=== PATIENT | male | born 1995 | race Hispanic/Latino ===

== ENCOUNTER 2024-09-20 13:08 | Emergency (ER) | payer BC ==
[~2024-09-20] VITALS: Ht 170.2 cm; Wt 162.4 kg
--- NOTE | 2024-09-20 13:16 | ERN ---
ED Note History of Present Illness Stated Complaint: CHEST PAIN, COUGHING Time Seen by MD: 13:08 Dictation: PATIENT IS A 29-YEAR-OLD MALE COMING IN WITH FLU-LIKE SYMPTOMS SINCE LAST SATURDAY TO INCLUDE BODY ACHES, T-MAX 103, CLEAR RHINITIS AND SORE THROAT WITH PAINFUL SWALLOWING. HE STATES HE HAS HAD AN INTERMITTENT COUGH WITH SHORTNESS A BREATH STATES THE PHLEGM HAS A OCCASIONALLY YELLOW-GREEN. NO NAUSEA VOMITING NO DIARRHEA HE TOOK IBUPROFEN AT 05:[address] PATIENT OF [address] SUE REES Allergies: Coded Allergies: No Known Drug Allergies (Unverified Allergy, Unknown, 09/20/24) Home Meds Active Scripts Ondansetron (Ondansetron Odt) 4 Mg Tab.rapdis, 4 MG PO Q6HPRN PRN for nausea, #16 TAB 0 Refills Prov:RICK ELIZABETH NP 09/20/24 Benzonatate (Tessalon Perles) 100 Mg Cap, 200 MG PO TID PRN for COUGH, #60 CAP Prov:RICK ELIZABETH NP 09/20/24 Azithromycin (Zithromax Tri-Femi) 500 Mg Tablet, 500 MG PO DAILY for 7 Days, #7 TAB Prov:RICK ELIZABETH CARGO SUPERVISOR 09/20/24 Oseltamivir Phosphate (Tamiflu) 75 Mg Cap, 75 MG PO BID for 5 Days, #10 CAP Prov:RICK ELIZABETH NP 09/20/24 Past Medical History RN Note Reviewed/Agreed w/PFSH: Yes Review of System Dictation CONSTITUTIONAL: NEGATIVE EXCEPT FOR HPI FEVER CHILLS HEAD/FACE: NEGATIVE EXCEPT FOR HPI EENT: NEGATIVE EXCEPT FOR HPI CLEAR RHINITIS WITH SORE THROAT RESPIRATORY: NEGATIVE EXCEPT FOR HPI COUGH WITH THE OCCASIONAL PRODUCTION GREEN- YELLOW PHLEGM GASTROINTESTINAL/ABDOMINAL: NEGATIVE EXCEPT FOR HPI GENITOURINARY: NEGATIVE EXCEPT FOR HPI MUSCULOSKELETAL: NEGATIVE EXCEPT FOR HPI INTEGUMENTARY: NEGATIVE EXCEPT FOR HPI NEUROLOGICAL/PSYCH: NEGATIVE EXCEPT FOR HPI HEMATOLOGIC/LYMPHATIC: NEGATIVE EXCEPT FOR HPI ALL SYSTEMS NEGATIVE, EXCEPT NOTED ABOVE. 13 POINT REVIEW OF SYSTEMS ASSESSED AND ALL NEGATIVE EXCEPT FOR ABOVE. Initial Vital Sign VS Vital Signs Date Time Temp Pulse Resp B/P (MAP) Pulse Ox O2 Delivery O2 Flow Rate FiO2 09/20/24 13:15 103.1 128 16 129/95 95 Room Air 0 09/20/24 13:15 21 Physical Exam Dictation VITAL SIGNS REVIEWED GENERAL APPEARANCE: ALERT, ORIENTED X 3, MILD ACUTE DISTRESS, WELL DEVELOPED, NOURISHED. MODERATELY OBESE HEAD AND FACE: NON-TRAUMATIC. EYES: PERRL, PINK CONJUNCTIVAS, EYELID NO TRAUMA, ANTERIOR CHAMBER WITH ARCUS SENILIS. EARS: PINNAS INTACT AND NO SIGNS OF TRAUMA OR ERYTHEMA EAR CANALS CLEAR AND NO DISCHARGE TM NO ERYTHEMA NOSE: CLEAR DISCHARGE, NO BLEEDING. OROPHARYNX: MOUTH NORMAL, TONGUE PINK, PHARYNX CLEAR, MILD PHARYNGEAL ERYTHEMA, TONSILS NO EXUDATES, NO ABSCESSES NOTED, MUCOUS MEMBRANE MOIST UVULA MIDLINE, VOICE IS CLEAR NECK: SUPPLE, NON-TENDER, NO THYROMEGALY, NO MASSES, NO JVD, NO BRUITS BREAST:DEFERRED CHEST:NO TENDERNESS, NO CREPITUS, NO PARADOXICAL MOVEMENT, NO RETRACTIONS LUNGS:CLEAR, WELL-VENTILATED, SYMMETRIC, NO RALES, NO WHEEZING, NO RHONCHI, NO STRIDOR, GOOD BREATH SOUNDS BILATERALLY INTERMITTENT DRY COUGH NOTED HEART: REGULAR RATE, REGULAR RHYTHM, NO MURMUR, NO GALLOPS VASCULAR: NO PERIPHERAL EDEMA, ABDOMEN: SOFT, POSITIVE BOWEL SOUNDS, NONDISTENDED, NO GUARDING, NONTENDER, NO REBOUND, NO MASSES NO HEPATOMEGALY, NO SPLENOMEGALY, NO MCDOWELL'S SIGN, NO HERNIAS. RECTAL: DEFERRED GENITAL: DEFERRED NEUROLOGICAL: NORMAL SPEECH, MOTOR FUNCTION INTACT, SENSORY FUNCTION INTACT MUSCULOSKELETAL: NECK NONTENDER, FULL RANGE OF MOTION, BACK NONTENDER, FULL RANGE OF MOTION, EXTREMITIES: NONTENDER, FULL RANGE OF MOTION SKIN: COLOR PINK, DRY, NO TURGOR, NO RASH, NO LACERATIONS, NO ABRASIONS, NO CONTUSIONS. LYMPHATIC: DEFERRED Results (Laboratory/Radiology) Laboratory/Radiology Laboratory Tests Test 09/20/24 13:10 Influenza Type A Antigen Positive For Type A Influenza Type B Antigen Negative For Type B SARS-CoV-2 Antigen (Rapid) PRESUMPTIVE NEGATIVE Group A Streptococcus Rapid negative (NEGATIVE) Labs Reviewed?: Yes ED Course ED Course Orders Procedure Category Date Status Time Influenza Type A & B, LAB 09/20/24 Complete Rapid 13:12 Rapid (Group A Strep) LAB 09/20/24 Complete 13:12 Covid19 (Sars Antigen LAB 09/20/24 Complete Rapid) 13:12 Dexamethasone 4mg/Ml PHA 09/20/24 Complete 1ml Vial (Dexametha 13:30 Ibuprofen 800 Mg Tab PHA 09/20/24 Complete (Motrin) 13:30 Saline Lock Iv CPOE 09/20/24 Transmitted 13:21 Methylprednisolone PHA 09/20/24 Complete Succ 125mg (Solu-Medr 13:30 Ketorolac PHA 09/20/24 Complete Tromethamine 30mg/Ml 13:30 Ondansetron 4mg Inj PHA 09/20/24 Complete (Zofran 4mg Inj) 13:30 Current Medications Medications (Trade) Dose Ordered Sig/Braxton Route PRN Reason Start Time Stop Time Status Last Admin Dose Admin Dexamethasone Sodium Phosphate (dexaMETHasone 4MG/ML 1ML VIAL) 8 mg ONCE ONCE IM 09/20/24 13:30 09/20/24 13:23 DC Ibuprofen (moTRIN) 800 mg ONCE ONCE PO 09/20/24 13:30 09/20/24 13:23 DC Ketorolac Tromethamine (toRADol) 30 mg ONCE ONCE IVP 09/20/24 13:30 09/20/24 13:31 DC 09/20/24 13:26 Methylprednisolone Sodium Succinate (Solu-medROL 125MG) 125 mg ONCE ONCE IVP 09/20/24 13:30 09/20/24 13:31 DC 09/20/24 13:26 Ondansetron HCl (zoFRAN 4MG INJ) 4 mg ONCE ONCE IVP 09/20/24 13:30 09/20/24 13:31 DC 09/20/24 13:26 Vital Signs Date Time Temp Pulse Resp B/P (MAP) Pulse Ox O2 Delivery O2 Flow Rate FiO2 09/20/24 15:01 99.0 98 18 127/63 96 Room Air* 0 21 09/20/24 13:29 100.4 112 20 125/65 96 Room Air* 0 21 09/20/24 13:15 103.1 128 16 129/95 98 Room Air* 0 21 09/20/24 13:15 103.1 128 16 129/95 95 Room Air 0 Medical Decision Making MDM MEDICAL DECISION-MAKING BASED ON SWABS FOR FLU COVID AND STREP. PATIENT IS POSITIVE FOR INFLUENZA A WE WILL BE DISCHARGED HOME WITH TAMIFLU PATIENT GIVEN ZOFRAN FOR NAUSEA VOMITING WE WILL BE SENT HOME WITH ZOFRAN ODT ALSO WE WILL BE TREATED EMPIRICALLY FOR ACUTE TONSILLITIS UNSPECIFIED WITH AZITHROMYCIN TOLD SEE HIS PRIMARY CARE DOCTOR. DX & DISP Disposition: Discharge Departure Impression: Primary Impression: Influenza A Additional Impressions: Acute tonsillitis, unspecified, Nausea & vomiting, Cough Condition: Stable Scripts Ondansetron (Ondansetron Odt) 4 Mg Tab.rapdis 4 MG PO Q6HPRN PRN for nausea, #16 TAB 0 Refills Prov: RICK ELIZABETH NP 09/20/24 Benzonatate (Tessalon Perles) 100 Mg Cap 200 MG PO TID PRN for COUGH, #60 CAP Prov: RICK ELIZABETH NP 09/20/24 Azithromycin (Zithromax Tri-Femi) 500 Mg Tablet 500 MG PO DAILY for 7 Days, #7 TAB Prov: RICK ELIZABETH NP 09/20/24 Oseltamivir Phosphate (Tamiflu) 75 Mg Cap 75 MG PO BID for 5 Days, #10 CAP Prov: RICK ELIZABETH NP 09/20/24 Additional Instructions: FOLLOW-UP WITH PRIMARY CARE PROVIDER IN 1 TO 2 DAYS. TAKE MEDICATIONS DIRECTED HERE IN THE EMERGENCY ROOM. OKAY TO CONTINUE HOME MEDICATIONS UNLESS OTHERWISE DISCUSSED DURING YOUR VISIT IN THE EMERGENCY ROOM TODAY. RETURN TO YOUR NEAREST EMERGENCY ROOM IF SYMPTOMS WORSEN OR IF THERE IS NO IMPROVEMENT. CALL 911 IF YOU NEED IMMEDIATE ASSISTANCE. TAKE TYLENOL OR MOTRIN [id number] NEEDED AND IF NO CONTRAINDICATIONS ARE PRESENT. INCREASE ORAL HYDRATION. A WOUND CULTURE OR URINE CULTURE WAS ORDERED HERE IN THE EMERGENCY ROOM DEPARTMENT PLEASE FOLLOW-UP WITH PRIMARY CARE PROVIDER AND ADVISE THEM TO GET REPEAT PORTS FROM OUR FACILITY. IF YOU HAD ANY SYED WRAP/SPLINTS THAT WERE APPLIED HERE, PLEASE DO NOT REMOVE THEM UNTIL YOU SEE YOUR PRIMARY CARE OR SPECIALTY. TAKE AZITHROMYCIN DIRECTED UNTIL GONE. TAKE TAMIFLU DIRECTED UNTIL GONE. NO SCHOOL OR WORK UNTIL CLEARED BY YOUR PRIMARY CARE DOCTOR. INCREASE YOUR FLUID INTAKE AND TAKE TYLENOL OR MOTRIN [id number] NEEDED FOR FEVER PAIN. Referrals: SELF,REFERRAL (PCP) Time of Disposition: 14:55 I have reviewed the case, and I agree with, Diagnosis and Plan I performed a substantive portion of the visit. I have reviewed and personally made and approve the management plan that is documented in the notes by myself with JOE/resident. I acknowledged full responsibility for the patient's management plan. IRCK ELIZABETH NP Sep 20, 2024 13:16 KRISTEL MACEDO DO Sep 21, 2024 05:49
--- NOTE | 2024-09-20 13:20 | NUR ---
SEPSIS ALERT DEFERRED BY TENNIS PROFESSIONAL
[2024-09-20] MEDS: ondanSETRON 4MG INJ IVP ONE (13:26)
[2024-09-20] MEDS: Solu-medROL 125MG VIAL IVP ONE (13:26)
[2024-09-20] MEDS: ketOROlac 30MG VIAL (30MG/ML) IVP ONE (13:26)
[2024-09-20] MEDS ORDERED: ibuPROFEN 800 MG TAB PO ONE (13:30)
[2024-09-20] MEDS ORDERED: dexaMETHasone SOD PHOSPHATE 4 MG/ML 1ML VIAL IM ONE (13:30)
[2024-09-20 14:23] LABS: RAPID GROUP A STREP negative (NEGATIVE)
[2024-09-20 14:44] LABS: COVID19 (SARS ANTIGEN RAPID) PRESUMPTIVE NEGATIVE (NEGATIVE); INFLUENZA TYPE B Negative For Type B (NEGATIVE)
[2024-09-20 14:50] LABS: INFLUENZA TYPE A Positive For Type A (NEGATIVE)
[2024-09-20] MEDS ORDERED: AZIT500T2 PO (14:57)
[2024-09-20] MEDS ORDERED: OSEL75 PO (14:57)
[2024-09-20] MEDS ORDERED: ONDA-243 PO (14:57)
[2024-09-20] MEDS ORDERED: BENZ-39 PO (14:57)
[2024-09-20 15:01] VITALS: BP 127/63; PULSE 98; RESP 18; TEMP 99; O2SAT 96
== END 2024-09-20 15:16 | disposition home or self-care (01) ==
LOC: EDH 13:08
DX: J10.1 Influenza due to other identified influenza virus with other respiratory manifestations (principal); Z20.822 Contact with and (suspected) exposure to COVID-19; Z79.899 Other long term (current) drug therapy
CPT/HCPCS: 99284; 96374; 96375; 87426; 87880; 87804 ×2; J1885; J2919; J2405